=== PATIENT | female | born 1950 | race Caucasian/White ===

== ENCOUNTER 2022-02-02 16:55 | Emergency (ER) | payer OTHER ==
[2022-02-02 19:01] VITALS: BP 125/76; PULSE 86; RESP 20; TEMP 98.2; BMI 35.6
[2022-02-02] MEDS ORDERED: CYCLOBENZAPRINE HCL 10 MG TABLET (FP) PO ONE (19:47)
[2022-02-02] MEDS ORDERED: IBUPROFEN 400 MG TABLET (FP) PO ONE ×2 (19:47→19:51)
[2022-02-02] MEDS ORDERED: ACETAMINOPHEN 325 MG TABLET (FP) PO ONE (19:47)
[2022-02-02] MEDS ORDERED: LIDOCAINE 5% TOPICAL PATCH TP ONE (19:48)
[2022-02-02] MEDS ORDERED: ACETAMINOPHEN 325 MG TABLET (FP) ONE (19:50)
[2022-02-02] MEDS ORDERED: CYCLOBENZAPRINE HCL 10 MG TABLET (FP) ONE (19:50)
[2022-02-02] MEDS ORDERED: LIDOCAINE 5% TOPICAL PATCH ONE (19:50)
[2022-02-02] MEDS ORDERED: LIDOCAINE PATCH REMOVAL MC SCH (22:00)
== END 2022-02-02 20:49 | disposition home or self-care (01) ==
LOC: JERFT 16:55 → JER 16:55 → JERFT 20:49
DX: M54.41 Lumbago with sciatica, right side (principal)
CPT/HCPCS: 99283-25